=== PATIENT | male | born 1985 | race Caucasian/White ===

== ENCOUNTER 2024-08-05 16:10 | Emergency (ER) | payer MEDICARE, MEDICAID ==
[~2024-08-05] VITALS: Ht 177.8 cm; Wt 90.0 kg
[2024-08-05 16:15] VITALS: BP 146/91; PULSE 88; RESP 18; TEMP 97.8; O2SAT 93
[2024-08-05] MEDS ORDERED: CHLO25CA10 PO (16:47)
== END 2024-08-05 17:26 | disposition home or self-care (01) ==
LOC: ER 16:11
DX: Z00.00 Encounter for general adult medical examination without abnormal findings (principal); F10.939 Alcohol use, unspecified with withdrawal, unspecified; Y90.9 Presence of alcohol in blood, level not specified
CPT/HCPCS: 99283

== ENCOUNTER 2024-09-18 20:57 | Emergency (ER) | payer MEDICARE, MEDICAID ==
[~2024-09-18] VITALS: Ht 177.8 cm; Wt 66.8 kg
[~2024-09-18 20:57] MED LIST: CHLO25CA10 PO
[2024-09-18 21:05] VITALS: BP 142/56
[2024-09-18] MEDS: diphenhydrAMINE 25mg capsule PO ONE (21:30)
[2024-09-18] MEDS: predniSONE 20 mg tablet PO ONE (21:30)
[2024-09-18] MEDS: ipratropium/albuterol 3ml nebule NEB ONE (21:44)
[2024-09-18 21:46] VITALS: PULSE 91; RESP 20; O2SAT 95
[2024-09-18 21:51] VITALS: PULSE 90; RESP 18; O2SAT 94
[2024-09-18] MEDS ORDERED: DIPH25TA62 PO (21:56)
[2024-09-18] MEDS ORDERED: PRED20TA PO (21:56)
[2024-09-18] MEDS ORDERED: ALBU18HF2 INH (21:56)
[2024-09-18] MEDS: albuterol 2.5 MG/3 ML nebule NEB ONE (21:58)
[2024-09-18] MEDS ORDERED: EPIN0.3P3 IJ (21:59)
[2024-09-18 22:21] VITALS: PULSE 76; RESP 16; TEMP 97.8
== END 2024-09-18 22:23 | disposition home or self-care (01) ==
LOC: ER 20:57
DX: T78.1XXA Other adverse food reactions, not elsewhere classified, initial encounter (principal); R05.9 Cough, unspecified; R06.02 Shortness of breath; F17.200 Nicotine dependence, unspecified, uncomplicated; Z91.010 Allergy to peanuts; Z79.899 Other long term (current) drug therapy; X58.XXXA Exposure to other specified factors, initial encounter
CPT/HCPCS: 94640; 99283; J7512; Q0163; 94760

== ENCOUNTER 2024-09-23 09:42 | Emergency (ER) | payer MEDICARE, MEDICAID ==
[~2024-09-23] VITALS: Ht 177.8 cm; Wt 84.5 kg
[~2024-09-23 09:42] MED LIST changes: +ALBU18HF2 INH; +DIPH25TA62 PO; +EPIN0.3P3 IJ; +PRED20TA PO
[2024-09-23 10:28] LABS: BASOPHILS # (AUTO) 0.1 X10'3 (0-0.2); BASOPHILS % (AUTO) 1.2 % (0-1); EOSINOPHILS # (AUTO) 0.3 X10'3 (0-0.9); EOSINOPHILS % (AUTO) 4.1 % (0-6); HEMATOCRIT 38.8 % (42.0-52.0); HEMOGLOBIN 13.3 g/dl (14.0-17.9); LYMPHOCYTES # (AUTO) 3.1 X10'3 (1.1-4.8); LYMPHOCYTES % (AUTO) 40.7 % (21-51); MEAN CORPUSCULAR HEMOGLOBIN 32.1 PG (27.0-31.0); MEAN CORPUSCULAR HGB CONC 34.3 g/dL (33.0-36.5); MEAN CORPUSCULAR VOLUME 93.5 FL (78-98); MONOCYTES # (AUTO) 0.6 X10'3 (0-0.9); MONOCYTES % (AUTO) 8.1 % (2-12); NEUTROPHILS # (AUTO) 3.5 X10'3 (1.8-7.7); NEUTROPHILS % (AUTO) 45.9 % (42-75); PLATELET COUNT 335 X10'3 (140-440); RED BLOOD COUNT 4.15 X10'6 (4.70-6.10); RED CELL DISTRIBUTION WIDTH 14.3 % (11.5-14.5); WHITE BLOOD COUNT 7.7 X10'3 (4.5-11.0)
[2024-09-23 10:29] LABS: BILIRUBIN,URINE NEGATIVE (Neg); CLARITY,URINE CLEAR (Clear); COLOR,URINE YELLOW (Yellow); GLUCOSE, URINE NEGATIVE (Neg); KETONES,URINE NEGATIVE (Neg); LEUKOCYTE ESTERASE ,URINE NEGATIVE (Neg); NITRITES, URINE NEGATIVE (Neg); OCCULT BLOOD,URINE NEGATIVE (Neg); PROTEIN,URINE NEGATIVE (Neg); UROBILINOGEN,URINE 0.2 E.U/dL (0.2-1.0)
[2024-09-23 10:38] LABS: UA COLLECTION TYPE NON-SPECIFIED
[2024-09-23 10:43] LABS: ALANINE AMINOTRANSFERASE 120 U/L (12-78); ALBUMIN 3.9 G/DL (3.4-5.0); ALBUMIN/GLOBULIN RATIO 1.1 (1.1-1.5); ALKALINE PHOSPHATASE 73 IU/L (46-116); ANION GAP 8 (8-16); ASPARTATE AMINO TRANSFERASE 50 U/L (10-37); BILIRUBIN,TOTAL 0.6 MG/DL (0.1-1.0); BLOOD UREA NITROGEN 18 MG/DL (7-18); BUN/CREATININE RATIO 18.9 (10.0-20.0); CHLORIDE 105 MMOL/L (99-107); CREATININE 0.95 MG/DL (0.60-1.10); GLUCOSE 122 MG/DL (70-104); LIPASE 36 U/L (16-77); POTASSIUM 4.5 MMOL/L (3.5-5.1); SODIUM 141 MMOL/L (135-145); TOTAL CARBON DIOXIDE 28.2 MMOL/L (24-32); TOTAL PROTEIN 7.6 G/DL (6.4-8.2); eCRCL 108 ML/MIN; eGFR 88 ML/MIN
[2024-09-23 12:25] VITALS: BP 164/98; PULSE 89; RESP 15; TEMP 98.4; O2SAT 96
== END 2024-09-23 12:31 | disposition home or self-care (01) ==
LOC: ER 09:42
DX: R10.13 Epigastric pain (principal); Z88.8 Allergy status to other drugs, medicaments and biological substances
CPT/HCPCS: 36415; 76700; 80053; 81003; 83690; 85025; 99284

== ENCOUNTER 2024-09-29 23:45 | Emergency (ER) | payer MEDICARE, MEDICAID ==
[~2024-09-29] VITALS: Ht 177.8 cm; Wt 81.0 kg
[2024-09-29 23:51] VITALS: BP 122/83; PULSE 79; TEMP 99.1; O2SAT 97
[2024-09-30 00:22] VITALS: RESP 16
[2024-09-30] MEDS: pantoprazole 40mg Tablet.DR PO ONE (00:27)
[2024-09-30] MEDS: loperamide 2mg capsule PO ONE (00:27)
[2024-09-30] MEDS: famotidine 20mg tablet PO ONE (00:27)
[2024-09-30] MEDS: mag hydrox/Alum hydrox/simeth 30ml oral suspension PO ONE (00:27)
[2024-09-30] MEDS: ondansetron 4mg rapidly disintigrating tab PO ONE (00:27)
[2024-09-30] MEDS: LIDOcaine 2% Viscous 15ml cup MM ONE (00:27)
[2024-09-30] MEDS: proCHLORperazine 10mg tablet PO ONE (00:31)
[2024-09-30] MEDS ORDERED: LOPE2CAP PO (00:33)
[2024-09-30] MEDS ORDERED: ONDA-245 PO (00:33)
[2024-09-30] MEDS ORDERED: PANT-47 PO (00:34)
== END 2024-09-30 01:31 | disposition home or self-care (01) ==
LOC: ER 23:45
DX: K52.9 Noninfective gastroenteritis and colitis, unspecified (principal); Z91.010 Allergy to peanuts
CPT/HCPCS: 99284; Q0164

== ENCOUNTER 2024-10-03 22:39 | Emergency (ER) | payer MEDICARE, MEDICAID ==
[~2024-10-03] VITALS: Ht 177.8 cm; Wt 87.2 kg
[~2024-10-03 22:39] MED LIST changes: +LOPE2CAP PO; +ONDA-245 PO; +PANT-47 PO
--- NOTE | 2024-10-03 23:00 | Physician Documentation ---
History of Present Illness ~ Chief Complaint: Allergic Reaction Stated Complaint: ALLERGIC REACTION Time Seen by MD: 22:58 Primary Medical Doctor: CHANTE SMART Source: patient, EMS Mode of Arrival: EMS HPI 39-year-old male with a history of peanut allergy who presents with concern for allergic reaction He tells me that he was staying at a [place] [facility] currently, and thinks that he was exposed to something with peanuts. He reports having swelling and tingling to his lips and mouth. He did not have any access to Benadryl there. He denies any difficulty breathing, nausea, vomiting, or other associated symptoms. No significant skin rash. EMS gave 50 mg of oral Benadryl. Currently the patient states he feels much better. Medication Reconciliation Allergies: Coded Allergies: peanut (Verified Allergy, Unknown, 09/29/24) Scheduled Diphenhydramine Hcl (Benadryl Allergy), 1 TAB PO Q6H Loperamide Hcl (Loperamide), 2 CAP PO Q6H Ondansetron 8mg ODT (Ondansetron Odt), 1 TAB PO Q6H Pantoprazole Sodium (PROTONIX tablet), 1 TAB PO DAILY Prednisone* (Prednisone*), 3 TAB PO DAILY Scheduled PRN Albuterol Sulfate (Ventolin Hfa), 2 PUFFS INH Q4HPRN PRN for wheezing Chlordiazepoxide Hcl (Librium), 2 CAP PO HSPRN PRN for anxiety Epinephrine (Epipen 2-Marvel), 1 SYR IJ O PRN for short of breath Past Medical History Past Medical History: HIV Review of Systems Constitutional: Denies: fever ENT: Reports: mouth swelling Integumentary: Reports: itching Physical Exam Vital Signs: Temperature: 98.0, Source: Temporal, Heart Rate: 82, Respiratory Rate: 18, BP: 142/81, Pulse Oximetry: 96, Weight: 87.200 Oxygen Flow Rate: 0 Physical Exam General: This is a pleasant and very well-appearing young man, not in distress HEENT: Atraumatic, oropharynx is moist, no obvious swelling to the lips or tongue, no intraoral lesions Heart: Regular rate and rhythm, normal-appearing peripheral perfusion Lungs: Clear breath sounds bilateral, no wheezing, normal oxygen saturation on room air Skin: No hives noted Neuro: Alert and oriented, no focal deficits Psychiatric: Calm and cooperative with exam Progress Results/Orders Results/Orders Vital Signs 10/03/24 10/03/24 10/03/24 10/03/24 22:40 22:47 22:49 22:49 Temp 98.2 98.0 Pulse 84 82 Resp 18 18 18 B/P (MAP) 148/99 142/81 (101) Pulse Ox 96 96 96 O2 Delivery Room Air* O2 Flow Rate 0 0 0 FiO2 21 10/03/24 23:49 Temp 98.0 Pulse 90 Resp 16 B/P (MAP) 133/86 Pulse Ox 97 Medical Decision Making Differential Dx:Considerations: Include: Anaphylaxis, Angioedema, Contact dermatitis, Urticaria Assessment The patient presents with concern for an allergic reaction related to peanuts. He received oral Benadryl during transfer. Currently he was feeling better. On my exam he was no evidence of a dangerous allergic reaction or anaphylaxis. He was observed here in the emergency department with no further worsening symptoms. At this time I feel he is safe for discharge. Departure Time of Disposition: 23:01 Disposition: 01 HOME / SELF CARE / HOMELESS Impression: Primary Impression: Acute allergic reaction Condition: Improved Referrals: NO PRIMARY CARE PROVIDER (PCP) Comments You likely had a mild allergic reaction, which has gotten better after Benadryl. Education Educated: Patient Educated regarding: diagnosis, treatment Signature Scribe Signature: fortunato Attestation: OMI Bautista MD Oct 03, 2024 23:00
[2024-10-03 23:49] VITALS: BP 133/86; PULSE 90; RESP 16; TEMP 98; O2SAT 97
== END 2024-10-03 23:52 | disposition home or self-care (01) ==
LOC: ER 22:40
DX: T78.1XXA Other adverse food reactions, not elsewhere classified, initial encounter (principal); Z88.8 Allergy status to other drugs, medicaments and biological substances; Y92.89 Other specified places as the place of occurrence of the external cause
CPT/HCPCS: 99283

== ENCOUNTER 2024-10-08 02:52 | Emergency (ER) | payer MEDICARE, MEDICAID ==
[~2024-10-08] VITALS: Ht 177.8 cm; Wt 50.4 kg
[2024-10-08 03:08] VITALS: TEMP 96.8
--- NOTE | 2024-10-08 04:55 | Physician Documentation ---
History of Present Illness ~ Chief Complaint: Allergic Reaction Stated Complaint: ALLERGIC REACTION Time Seen by MD: 04:53 OK to notify your PCP?: Yes Primary Medical Doctor: CHANTE SMART Source: patient, RN/, RN notes reviewed, old records Mode of Arrival: POV Exam Limitations: no limitations HPI 39 year old male, with a history of peanut allergy, presents after an allergic reaction and EpiPen administration approximately 30 minutes prior to arrival, after accidentally eating a food that contained peanuts. Shortly after consumption he began having face and lip swelling, and difficulty breathing. Patient reports he felt like he was going to . Patient used his EpiPen and immediately came to the ED. patient reports symptoms are greatly improved and he denies any difficulty breathing at this time. His only complaint is a mild headache. Medication Reconciliation Allergies: Coded Allergies: peanut (Verified Allergy, Unknown, 09/29/24) Scheduled Diphenhydramine Hcl (Benadryl Allergy), 1 TAB PO Q6H Loperamide Hcl (Loperamide), 2 CAP PO Q6H Ondansetron 8mg ODT (Ondansetron Odt), 1 TAB PO Q6H Pantoprazole Sodium (PROTONIX tablet), 1 TAB PO DAILY Prednisone* (Prednisone*), 3 TAB PO DAILY Scheduled PRN Albuterol Sulfate (Ventolin Hfa), 2 PUFFS INH Q4HPRN PRN for wheezing Chlordiazepoxide Hcl (Librium), 2 CAP PO HSPRN PRN for anxiety Epinephrine (Epipen 2-Marvel), 1 SYR IJ O PRN for short of breath Past Medical History Past Medical History: HIV Past Surgical History: no surgical history Smoking Status: Current every day smoker Drug Use: Denies: marijuana Lives In: Home Review of Systems All Other Systems at this time: Reviewed and Negative ROS As stated above in the HPI, otherwise all systems are reviewed and negative. Physical Exam Vital Signs: RN Vital Signs have been reviewed: Yes, Temperature: 96.8, Source: Temporal, Heart Rate: 91, Respiratory Rate: 17, BP: 139/76, Pulse Oximetry: 100, Weight: 50.350 Pulse Oximetry Reflects: adequate oxygenation Physical Exam General: The patient is well developed, well nourished, nontoxic appearing and is in no acute distress. Skin: Reg[place], warm and dry with no rashes. HEENT: Oropharynx clear. Head was normocephalic and atraumatic. Chest: Clear to auscultation bilaterally without wheezes, rales or rhonchi. No accessory muscle use. No dullness to percussion. Heart: Rate regular and rhythmic. S1, S2. No murmurs. Palpation of the chest wall was normal. No rubs or thrills. Extremities: No cyanosis, clubbing or edema. The patient moves all extremities. Pulses were equal and symmetric. Neurologic: Motor and sensation grossly intact. Cranial nerves II-XII grossly intact. A & O x4. Psychologic: Normal mood and affect. No agitation. Progress Results/Orders Reviewed/noted all lab results: Yes Results/Orders Completed Orders - SAE KNOX MD Famotidine Tablet (Pepcid Tablet) (10/08/24 05:05) Diphenhydramine Capsule (Benadryl Capsul (10/08/24 05:05) Dexamethasone Tablet (Decadron Tablet) (10/08/24 05:05) Medications Received in ER Medications (Trade) Dose Ordered Sig/Katelyn Route PRN Reason Start Time Stop Time Status Last Admin Dose Admin (Pepcid tablet) 20 mg ONCE ONCE PO 10/08/24 05:05 10/08/24 05:06 DC 10/08/24 05:11 20 MG (Benadryl capsule) 25 mg ONCE ONCE PO 10/08/24 05:05 10/08/24 05:06 DC 10/08/24 05:11 25 MG (Decadron tablet) 12 mg ONCE ONCE PO 10/08/24 05:05 10/08/24 05:06 DC 10/08/24 05:10 12 MG Vital Signs 10/08/24 10/08/24 03:08 05:20 Temp 96.8 Pulse 91 85 Resp 17 16 B/P (MAP) 139/76 136/76 Pulse Ox 100 99 Re-Evaluation Re-Evaluation : Re-Evaluation: Resolved, Improved Progress Patient was seen and examined. Patient was given reassurance. The patient had no symptoms in basically resolved from his EpiPen. Patient was given H1 H2 blockers steroids and discharged home. Patient has additional EpiPens does not need a refill he was discharged home. Pulse oximetry monitor interpretation shows normal oxygenation at 99% room air, normal, my interpretation. Continuous monitor tech interpretation shows normal sinus rhythm heart rate 90s, no ectopy, normal, my interpretation. Medical Decision Making Additional info obtained from: old records Differential Dx:Considerations: Include: Anaphylaxis, Angioedema, Bronchospasm, Contact dermatitis, Hypotension, Respiratory failure, Urticaria, Other Departure Time of Disposition: 05:10 Disposition: 01 HOME / SELF CARE / HOMELESS Impression: Primary Impression: Anaphylactoid reaction Qualified Codes: T78.2XXA - Anaphylactic shock, unspecified, initial encounter Discharge Instructions: Anaphylactic Reaction, Adult, [id number] Additional Instructions: Return to the ER for return of facial or tongue swelling, shortness of breath, or any other concerns. Education Educated: Patient Educated regarding: diagnosis, treatment, need for follow up Signature Scribe Signature: Scribed for Sae Knox MD by Prisca Weiss . 10/08/24 05:04 Attestation: The note accurately reflects work and decisions made by me.Sae Knox MD 10/08/24 04:55 SAE KNOX MD October 08, 2024 04:55 PRISCA CRUZ October 08, 2024 05:10
[2024-10-08] MEDS: dexamethasone 4mg tablet PO ONE (05:10)
[2024-10-08] MEDS: diphenhydrAMINE 25mg capsule PO ONE (05:11)
[2024-10-08] MEDS: famotidine 20mg tablet PO ONE (05:11)
[2024-10-08 05:20] VITALS: BP 136/76; PULSE 85; RESP 16; O2SAT 99
== END 2024-10-08 05:25 | disposition home or self-care (01) ==
LOC: ER 02:53
DX: T78.01XA Anaphylactic reaction due to peanuts, initial encounter (principal); F17.200 Nicotine dependence, unspecified, uncomplicated; F12.90 Cannabis use, unspecified, uncomplicated; Z91.010 Allergy to peanuts; Z79.899 Other long term (current) drug therapy
CPT/HCPCS: 99284; Q0163